=== PATIENT | female | born 1995 | race Caucasian/White ===

== ENCOUNTER → 2016-11-21 | Outpatient (CLI) | payer BC ==
[~2016-11-21] MED LIST: AMOXICILLIN/CLA1 TA1 PO; ATIVAN 0.50.5 MG/TAB PO; BUSPAR DIVIDOSE15 MG PO; FLONASE NASAL S16 GM NS; IMPLANON68 MG ID; LATUDA40 MG PO; NASAL SPRAY 3030 M1; PREDNISONE20 MG PO; PROAIR HFA0.09 MG/AC IH; SINGULAIR 110 MG/TAB PO; ZOLOFT 100MG100 MG PO; ZYRTEC-D 5 MG-11 TER PO
== END ==
LOC: BHSO 12:57
DX: F31.81 Bipolar II disorder (principal)

== ENCOUNTER → 2016-11-28 | Outpatient (CLI) | payer BC | LOC: BHSO 12:53 | DX: F41.1 Generalized anxiety disorder (principal) ==

== ENCOUNTER → 2016-12-12 | Outpatient (CLI) | payer BC | LOC: BHSO 12:58 | DX: F41.1 Generalized anxiety disorder (principal) ==

== ENCOUNTER → 2016-12-28 | Outpatient (CLI) | payer BC | LOC: BHSO 10:11 | DX: F31.81 Bipolar II disorder (principal) ==

== ENCOUNTER → 2017-04-16 | Outpatient (REF) | LOC: WSOH 08:39 → WSPT 10:00 | DX: Z02.89 Encounter for other administrative examinations (principal) ==

== ENCOUNTER → 2017-04-22 | Outpatient (REF) | LOC: WSOH 10:32 | DX: Z01.89 Encounter for other specified special examinations (principal) ==

== ENCOUNTER → 2017-04-29 | Outpatient (REF) | LOC: WSOH 14:20 | DX: Z11.1 Encounter for screening for respiratory tuberculosis (principal) ==

== ENCOUNTER 2017-07-30 10:44 | Emergency (ER) | payer OTHER ==
[~2017-07-30] VITALS: Ht 165.1 cm; Wt 59.1 kg
[2017-07-30 10:57] VITALS: BP 119/63; TEMP 99.2
[2017-07-30] MEDS ORDERED: BLEPH-105 ML OU (12:08)
[2017-07-30 12:21] VITALS: PULSE 70
== END 2017-07-30 12:21 | disposition home or self-care (01) ==
LOC: COL.ER 10:44
DX: H18.821 Corneal disorder due to contact lens, right eye (principal); X58.XXXA Exposure to other specified factors, initial encounter

== ENCOUNTER → 2017-10-02 | Outpatient (CLI) | payer OTHER ==
[~2017-10-02] MED LIST changes: +BLEPH-105 ML OU
== END ==
LOC: BHSO 15:19
DX: F50.9 Eating disorder, unspecified (principal)

== ENCOUNTER 2017-11-21 12:22 | Emergency (ER) | payer OTHER ==
[~2017-11-21] VITALS: Ht 165.1 cm; Wt 59.1 kg
[2017-11-21 12:24] VITALS: BP 108/68; TEMP 98.1
[2017-11-21] MEDS ORDERED: EFFEXOR 75M75 MG/TAB PO (12:28)
[2017-11-21 13:06] LABS: BASO % 0.4 % (0.0-2.0); EOS # 0.1 (0.0-0.7); EOS % 1.1 % (0-4.0); GRAN # 2.8 (1.4-6.5); GRAN % 61.1 % (42.2-75.2); HEMATOCRIT 41.2 % (37.0-47.0); HEMOGLOBIN 13.9 g/dl (12.5-16.0); LYMPH # 1.2 (1.2-3.4); LYMPH % 26.4 % (20.0-51.0); MEAN CELL VOLUME 91 fl (80.0-100.0); MEAN CORPUSCULAR HEMOGLOBIN 31 pg (27.0-31.0); MEAN CORPUSCULAR HGB CONC 34 g/dl (33.0-37.0); MEAN PLATELET VOLUME 11.3 fl (7.4-10.4); MONO # 0.5 (0.1-0.6); MONO % 10.8 % (1.7-9.3); PLATELET COUNT 160 K/mm3 (130-400); RED BLOOD COUNT 4.54 M/mm3 (4.10-5.30); REDCELL DISTRIBUTION WIDTH-CV 13.9 % (11.5-14.5)
[2017-11-21 13:10] LABS: COLLECTION METHOD CLEAN CATCH
[2017-11-21 13:17] LABS: ALBUMIN 4.2 gm/dL (3.5-5.0); BILIRUBIN,TOTAL 0.9 mg/dL (0.0-1.0); CALCIUM 8.9 mg/dL (8.4-10.2); CREATININE, serum 0.83 mg/dL (0.52-1.25); POTASSIUM 3.4 mmol/L (3.4-5.0); TOTAL PROTEIN 6.8 gm/dL (6.4-8.2)
[2017-11-21 13:33] LABS: PH 6 (5-8); SQUAMOUS EPITHELIAL 0-2 /hpf; URINE APPEARANCE Clear; URINE BACTERIA Rare /hpf; URINE BILIRUBIN Negative (NEGATIVE); URINE BLOOD 1+ (NEGATIVE); URINE COLOR Straw; URINE GLUCOSE Negative (NEGATIVE); URINE KETONE Negative (NEGATIVE); URINE LEUKOCYTE ESTERASE Negative (NEGATIVE); URINE NITRATE Negative (NEGATIVE); URINE PROTEIN(semi-quant) Negative (NEGATIVE); URINE RBC 0-2 /hpf; URINE UROBILINOGEN Negative (NEGATIVE)
[2017-11-21] MEDS ORDERED: PHENERGAN 25 TA25 MG PO (15:04)
[2017-11-21 15:20] VITALS: PULSE 76
== END 2017-11-21 15:19 | disposition home or self-care (01) ==
LOC: COL.ER 12:22
PROVIDERS: Emergency Medicine
DX: K52.9 Noninfective gastroenteritis and colitis, unspecified (principal); Z90.49 Acquired absence of other specified parts of digestive tract
CPT/HCPCS: J2550; J7030

== ENCOUNTER → 2017-12-03 | Outpatient (CLI) | payer OTHER ==
[~2017-12-03] MED LIST changes: +EFFEXOR 75M75 MG/TAB PO; +PHENERGAN 25 TA25 MG PO
== END ==
LOC: BHSO 15:03
DX: F33.1 Major depressive disorder, recurrent, moderate (principal)
CPT/HCPCS: G0463